=== PATIENT | female | born 1985 | race Two or more races ===

== ENCOUNTER 2022-03-09 23:56 | Emergency (ER) | payer OTHER ==
[~2022-03-09] VITALS: Ht 160 cm; Wt 61.2 kg
== END 2022-03-10 | disposition left against medical advice (07) ==
LOC: ER 23:56
DX: S93.401A Sprain of unspecified ligament of right ankle, initial encounter (principal); W18.30XA Fall on same level, unspecified, initial encounter; Y93.9 Activity, unspecified; Y92.59 Other trade areas as the place of occurrence of the external cause; Z88.6 Allergy status to analgesic agent

== ENCOUNTER → 2022-03-10 | Emergency (ER) | payer OTHER ==
[~2022-03-10] VITALS: Ht 162.6 cm; Wt 72.6 kg
== END | disposition home or self-care (01) ==
LOC: ER 09:57
DX: S30.0XXA Contusion of lower back and pelvis, initial encounter (principal); Y09 Assault by unspecified means; Y93.9 Activity, unspecified; Y92.59 Other trade areas as the place of occurrence of the external cause; S90.01XA Contusion of right ankle, initial encounter